=== PATIENT | male | born 1985 | race Caucasian/White ===

== ENCOUNTER 2017-03-21 12:29 | Emergency (ER) | payer SELFPAY ==
--- NOTE | 2017-03-21 14:05 | RAD ---
Indication: Nasal injury. 3 views of the nasal bones demonstrates no fracture. No depression is noted. Nasal spine is unremarkable. IMPRESSION: No fracture of the nasal bones is noted.
[2017-03-21] MEDS ORDERED: Tetan/Diph/Pertus SYR(Tdap)* 0.5 ML SYR(BOOSTRIX) use SYR IM ONE (14:19)
--- NOTE | 2017-03-21 14:19 | UC ---
Epistaxis Nasal HPI - HPI Summary HPI Summary: Abrasion on his nose after getting hit in the face with a saw stand about 2 hours ago at work - History of Current Complaint Chief Complaint: UCHeadInjury Stated Complaint: FACIAL INJURY Time Seen by Provider: 03/21/17 14:14 Hx Obtained From: Patient Onset/Duration: Sudden Onset Timing: Constant Severity Initially: Moderate Severity Currently: Moderate Alleviating Factor(s): Nothing Associated Signs And Symptoms: Positive: Negative - Allergies/Home Medications Allergies/Adverse Reactions: Allergies Allergy/AdvReac Type Severity Reaction Status Date / Time No Known Allergies Allergy Verified 03/21/17 13:02 Home Medications: Home Medications NK [No Home Medications Reported] 03/21/17 [History Confirmed 03/21/17] PMH/Surg Hx/FS Hx/Imm Hx Previously Healthy: Yes - Surgical History Surgical History: Yes Surgery Procedure, Year, and Place: Right arm fracture repair - Family History Known Family History: Positive: Cardiac Disease - mother, angina, Other - breast ca mother - Social History Occupation: Employed Full-time Lives: With Family Alcohol Use: Rare Substance Use Type: None Smoking Status (MU): Light Every Day Tobacco Smoker Amount Used/How Often: 4-5 cigs per day Have You Smoked in the Last Year: Yes - Immunization History Most Recent Tetanus Shot: not sure Review of Systems Constitutional: Negative Skin: Other - Abrasion on nose Eyes: Negative ENT: Negative Respiratory: Negative Cardiovascular: Negative Gastrointestinal: Negative Genitourinary: Negative Motor: Negative Neurovascular: Negative Musculoskeletal: Arthralgia Neurological: Negative Psychological: Negative Is Patient Immunocompromised?: No All Other Systems Reviewed And Are Negative: Yes Physical Exam Triage Information Reviewed: Yes Appearance: Well-Appearing, No Pain Distress, Well-Nourished Vital Signs: Initial Vital Signs Temp 98.3 F 03/21/17 12:57 Pulse 66 03/21/17 12:57 Resp 18 03/21/17 12:57 BP 135/82 03/21/17 12:57 Pulse Ox 98 03/21/17 12:57 Vital Signs Reviewed: Yes Eye Exam: Normal Eyes: Positive: Conjunctiva Clear ENT Exam: Normal ENT: Positive: Normal ENT inspection, Hearing grossly normal, TMs normal, Uvula midline. Negative: Nasal congestion, Nasal drainage, Trismus, Muffled voice, Hoarse voice, Sinus tenderness Dental Exam: Normal Neck exam: Normal Neck: Positive: Supple, Nontender Respiratory Exam: Normal Respiratory: Positive: Chest non-tender, No respiratory distress, No accessory muscle use Cardiovascular Exam: Normal Cardiovascular: Positive: RRR, Pulses Normal, Brisk Capillary Refill Musculoskeletal Exam: Normal Musculoskeletal: Positive: Strength Intact, ROM Intact, No Edema Neurological Exam: Normal Neurological: Positive: Alert, Muscle Tone Normal Psychological Exam: Normal Skin Exam: Other Skin: Positive: Other - abrasion on bridge of nose Diagnostics - Radiology No standard instances Xray Interpretation: No Acute Changes Radiology Interpretation Completed By: ED Physician, Radiologist Epistaxis Nasal Course/Dx - Course Course Of Treatment: mild soap and water wash, ice, up date tetanus, ibuprofen follow with pcp prn - Differential Dx/Diagnosis Provider Diagnoses: Nose contusion, Tatnus vaccine updated Discharge - Discharge Plan Condition: Stable Disposition: HOME Patient Education Materials: Diphtheria/Acellular Pertussis/Tetanus Booster Vaccine (By injection), Abrasion (ED), Ice Pack Application (ED), Nasal Contusion (ED) Referrals: [facility] [Outside] - If Needed
[2017-03-21 14:33] VITALS: BP 135/82
== END 2017-03-21 14:30 | disposition home or self-care (01) ==
LOC: UCEAST 12:29
DX: S00.33XA Contusion of nose, initial encounter (principal); W22.8XXA Striking against or struck by other objects, initial encounter; Y93.89 Activity, other specified; Y92.89 Other specified places as the place of occurrence of the external cause; Y99.0 Civilian activity done for income or pay; Z23 Encounter for immunization; F17.210 Nicotine dependence, cigarettes, uncomplicated
CPT/HCPCS: 70160; 90715; 99211; G0463

== ENCOUNTER 2019-08-17 12:06 | Emergency (ER) | payer BC ==
[2019-08-17 12:20] VITALS: BP 138/86
[2019-08-17] MEDS ORDERED: Tetan/Diph/Pertus SYR(Tdap)* 0.5 ML SYR(BOOSTRIX) use SYR contains LATEX IM ONE (12:25)
== END 2019-08-17 13:13 | disposition home or self-care (01) ==
LOC: UCEAST 12:06